=== PATIENT | female | born 1955 ===

== ENCOUNTER 2018-09-10 08:53 | Emergency (ER) | payer MEDICAID, OTHER ==
[2018-09-10 08:59] VITALS: BMI 31.2
[2018-09-10 09:09] VITALS: RESP 20
--- NOTE | 2018-09-10 09:49 | C.PDOC ---
History Of Present Illness 63 y/o female presents to ED with c/o intermittent nose bleeds for 3 weeks. At ED patient not actively bleeding and denies dizziness, trauma, vision changes or any other complaints at this time. Time Seen by Provider: 09/10/18 08:59 Chief Complaint (Nursing): ENT Problem History Per: Patient History/Exam Limitations: None Onset/Duration Of Symptoms: Days Current Symptoms Are (Timing): Still Present Symptoms Have Been: Episodic Severity: Mild Anticoagulant/Antiplatlet Use?: No Recent Aspirin Use: No Past Medical History Reviewed: Historical Data, Nursing Documentation, Vital Signs Vital Signs: Last Vital Signs Temp 98 F 09/10/18 09:07 Pulse 72 09/10/18 09:07 Resp 20 09/10/18 09:07 BP 103/66 09/10/18 09:07 Pulse Ox 98 09/10/18 09:07 - Medical History PMH: HTN Surgical History: No Surg Hx Family History: States: No Known Family Hx - Social History Hx Alcohol Use: No Hx Substance Use: No - Immunization History Hx Tetanus Toxoid Vaccination: No Hx Influenza Vaccination: No Hx Pneumococcal Vaccination: No Review Of Systems Constitutional: Negative for: Fever, Chills ENT: Positive for: Other (bleeding from nose). Negative for: Nose Pain, Nose Discharge, Nose Congestion, Throat Pain Respiratory: Negative for: Cough, Shortness of Breath Skin: Negative for: Rash Physical Exam - Physical Exam Appears: Non-toxic, No Acute Distress Skin: Warm, Dry, No Rash Head: Atraumatic, Normacephalic Eye(s): bilateral: Normal Inspection Ear(s): Bilateral: Normal Nose: Normal, No Discharge, No Epistaxis, No Septal Hematoma, Other (no bleeding site identified) Oral Mucosa: Moist Throat: Normal, No Erythema, No Exudate Neck: Normal Cardiovascular: Rhythm Regular Respiratory: Normal Breath Sounds Neurological/Psych: Oriented x3 Gait: Steady ED Course And Treatment - Laboratory Results Result Diagrams: 09/10/18 10:05 Lab Interpretation: Normal O2 Sat by Pulse Oximetry: 98 (RA) Pulse Ox Interpretation: Normal Progress Note: CBC ordered. Patient discharged with follow up to ENT in 1-2 days. On re-evaluation no bleeding noted Reassessment Condition: Unchanged Disposition Counseled Patient/Family Regarding: Diagnosis, Need For Followup - Disposition Referrals: [facility] [Outside] [facility] [Outside] Bulmaro Hull MD [Staff Provider] - Disposition: HOME/ ROUTINE Disposition Time: 11:30 Condition: GOOD Additional Instructions: Follow up with ENT and clinic for further evaluation Return to ED if any increase symptoms Instructions: Nosebleeds Forms: [facility] (Moroccan) - POA Present On Arrival: None - Clinical Impression Clinical Impression: Epistaxis - PA / REVIEW ASSISTANT / Resident Statement MD/DO has reviewed & agrees with the documentation as recorded. - Scribe Statement The provider has reviewed the documentation as recorded by the Yudyibramana Robb All medical record entries made by the Nehal were at my direction and personally dictated by me. I have reviewed the chart and agree that the record accurately reflects my personal performance of the history, physical exam, medical decision making, and the department course for this patient. I have also personally directed, reviewed, and agree with the discharge instructions and disposition.
[2018-09-10 10:11] LABS: BASO % 0.7 % (0.0-2.0); EOS # 0.1 K/uL (0.0-0.7); HEMOGLOBIN 13.5 g/dL (11.0-16.0); LYMPH # 1.9 K/uL (1.0-4.3); LYMPH % 34.7 % (20.0-40.0); MEAN CELL VOLUME 93.6 fL (81.0-99.0); MEAN CORPUSCULAR HEMOGLOBIN 31.7 pg (27.0-31.0); MEAN CORPUSCULAR HGB CONC 33.8 g/dL (33.0-37.0); MEAN PLATELET VOLUME 8.9 fL (7.2-11.7); MONO # 0.5 K/uL (0.0-0.8); MONO % 9.4 % (0.0-10.0); NEUT # 2.9 K/uL (1.8-7.0); NEUT % 53.2 % (50.0-75.0); NRBC % 0.1 % (0.0-2.0); RBC 4.27 Mil/uL (3.80-5.20); RED CELL DISTRIBUTION WIDTH 13.8 % (11.5-14.5); WHITE BLOOD COUNT 5.4 K/uL (4.8-10.8)
[2018-09-10 10:57] VITALS: BP 107/67; PULSE 69; TEMP 97.4
[2018-09-10 16:06] VITALS: O2SAT 98
== END 2018-09-10 10:56 | disposition home or self-care (01) ==
LOC: C.ER 08:53
DX: R04.0 Epistaxis (principal)